=== PATIENT | male | born 1960 | race Caucasian/White ===

== ENCOUNTER 2020-06-18 14:57 | Inpatient (IN) | payer OTHER, SELFPAY ==
[~2020-06-18 14:57] MED LIST: Iopamidol-370 76% 500 ML 1 ML ONE
[2020-06-18 15:54] LABS: #Basophils 0.1 thou/uL (0.0-0.2); #Eosinphils 0.3 thou/uL (0.0-0.7); #Lymphocytes 1.8 thou/uL (1.20-3.40); #Monocytes 1.2 thou/uL (0.11-0.59); %Basophils 0.8 % (0.0-1.0); %Eosinophils 2.8 % (0.0-10.0); %Lymphocytes 15.5 % (21.0-51.0); %Monocytes 10.6 % (0.0-10.0); %Neutrophils 70.3 % (42.0-75.0); Hemoglobin 11.6 g/dL (14.0-18.0); Mean Corpuscular HGB CONC 31.3 g/dL (32.0-36.0); Mean Corpuscular Hemoglobin 29.7 pg (27.0-31.0); Mean Corpuscular Volume 94.7 fL (78.0-98.0); Mean Platelet Volume 8.2 fL (7.4-10.4); Platelet Count 265 thou/uL (130-400); RBC Distribution Width 14.9 % (11.5-14.5); Red Blood Cell (RBC) Count 3.91 mill/uL (4.70-6.10); White Blood Cell (WBC) Count 11.4 thou/uL (4.8-10.8)
[2020-06-18 16:26] LABS: ALT (SGPT) 12 U/L (8-55); AST (SGOT) 14 U/L (5-34); Albumin 4.1 g/dL (3.4-4.8); Alkaline Phosphatase 100 U/L (40-110); Anion Gap 12 mmol/L (10-20); BUN (Urea Nitrogen) 18 mg/dL (8.4-25.7); Bilirubin, Total 0.7 mg/dL (0.2-1.2); Calc. Creatinine Clearance 0 mL/min (70-130); Carbon Dioxide 30 mmol/L (23-31); Chloride 107 mmol/L (98-107); Globulin 2.9 g/dL (2.4-3.5); Glucose 162 mg/dL (80-115); Sodium 145 mmol/L (136-145)
[2020-06-18] MEDS ORDERED: Azithromycin 500 MG VIAL ONE (16:43)
[2020-06-18] MEDS ORDERED: cefTRIAXone\\ROCEPHIN 2 GM VIAL ONE (16:43)
[2020-06-18 17:14] LABS: SARS-CoV-2 NAA Rapid Test Not Detected (NotDetected)
[2020-06-18] MEDS ORDERED: Dextrose 5% in Water 1,000 ML IV PRN (19:57)
[2020-06-18] MEDS ORDERED: Dextrose 50% Abboject 50 ML SYRINGE SLOW IVP PRN (19:57)
[2020-06-18] MEDS ORDERED: HumaLOG 300 UNITS/3 ML VIAL SC PRN ×2 (19:57)
[2020-06-18] MEDS ORDERED: Guaifenesin DM 100-10/5 ML UDCUP PO PRN (19:59)
[2020-06-18] MEDS ORDERED: Acetaminophen 325 MG TAB PO PRN (19:59)
[2020-06-18] MEDS ORDERED: Ondansetron PF 4 MG/2 ML Vial IVP PRN (19:59)
[2020-06-18] MEDS ORDERED: Calcium Carbonate 500 MG ChewTAB PO PRN (19:59)
[2020-06-18] MEDS ORDERED: Ondansetron ODT 4 MG TAB PO PRN (19:59)
[2020-06-18] MEDS ORDERED: Furosemide 40 MG/4 ML VIAL SLOW IVP SCH (20:00)
[2020-06-18] MEDS: Famotidine 20 MG TAB PO SCH (21:25)
[2020-06-18 21:38] LABS: Troponin I Less than 0.010 ng/mL (< 0.028)
[2020-06-18 23:26] LABS: Troponin I 0.012 ng/mL (< 0.028)
[2020-06-18 23:33] VITALS: BMI 42.4
[2020-06-19 05:23] LABS: #Basophils 0.1 thou/uL (0.0-0.2); #Eosinphils 0.3 thou/uL (0.0-0.7); #Monocytes 1.2 thou/uL (0.11-0.59); %Basophils 0.8 % (0.0-1.0); %Eosinophils 3.1 % (0.0-10.0); %Lymphocytes 18.7 % (21.0-51.0); %Monocytes 11.5 % (0.0-10.0); %Neutrophils 65.9 % (42.0-75.0); Hemoglobin 11.5 g/dL (14.0-18.0); Mean Corpuscular HGB CONC 30.7 g/dL (32.0-36.0); Mean Corpuscular Hemoglobin 29.2 pg (27.0-31.0); Mean Corpuscular Volume 95.2 fL (78.0-98.0); Mean Platelet Volume 8.3 fL (7.4-10.4); Platelet Count 259 thou/uL (130-400); Red Blood Cell (RBC) Count 3.94 mill/uL (4.70-6.10); White Blood Cell (WBC) Count 10.6 thou/uL (4.8-10.8)
[2020-06-19 05:57] LABS: Anion Gap 13 mmol/L (10-20); BUN (Urea Nitrogen) 18 mg/dL (8.4-25.7); Calc. Creatinine Clearance 106 mL/min (70-130); Calcium 9.7 mg/dL (7.8-10.44); Carbon Dioxide 31 mmol/L (23-31); Chloride 104 mmol/L (98-107); Glucose 114 mg/dL (80-115); Magnesium 2.1 mg/dL (1.6-2.6); Potassium 4.5 mmol/L (3.5-5.1); Sodium 143 mmol/L (136-145)
[2020-06-19] MEDS: Famotidine 20 MG TAB PO SCH ×2 (08:42→20:12)
[2020-06-19] MEDS: Enoxaparin Sodium 40 MG/0.4 ML SYRINGE SC SCH (08:42)
[2020-06-19] MEDS ORDERED: Non-Formulary Item 1 EACH (Omega-3 Fatty Acids/Fish Oil [Fish Oil 1,000 Mg Capsule] 1 CAP PO SCH (09:00)
[2020-06-19] MEDS ORDERED: Non-Formulary Item 1 EACH (Lisinopril [Lisinopril] 40 MG Tablet) PO SCH (09:00)
[2020-06-19] MEDS ORDERED: Non-Formulary Item 1 EACH (Atorvastatin Calcium [Lipitor] 80 MG Tablet) PO SCH (09:00)
[2020-06-19] MEDS ORDERED: Non-Formulary Item 1 EACH (Nifedipine [Nifedipine Er] 60 MG Tablet.Er) PO SCH (09:00)
[2020-06-19] MEDS ORDERED: Non-Formulary Item 1 EACH (Semaglutide [Rybelsus] 3 MG Tablet) PO SCH (09:00)
[2020-06-19] MEDS: Aspirin 81 mg Enteric Coated Tablet PO SCH (10:20)
[2020-06-19] MEDS: hydrALAZINE 10 MG TAB PO SCH ×3 (10:20→20:12)
[2020-06-19] MEDS: Fish Oil 1,000 MG CAP PO SCH (10:20)
[2020-06-19] MEDS: Carvedilol 25 MG TAB PO SCH ×3 (10:21→20:12)
[2020-06-19] MEDS: Atorvastatin Calcium 40 MG TAB PO SCH (10:21)
[2020-06-19] MEDS ORDERED: Furosemide 40 MG/4 ML VIAL SLOW IVP SCH (14:30)
[2020-06-19] MEDS ORDERED: cefTRIAXone\\ROCEPHIN 1 GM in Sodium Chloride 0.9% 100 ML IVPB SCH (16:00)
[2020-06-19] MEDS ORDERED: Azithromycin 500 MG in Sodium Chloride 0.9% 250 ML 250 ML IVPB SCH (17:00)
[2020-06-20] MEDS ORDERED: Semaglutide [Rybelsus] 3 MG Tablet PO SCH (09:00)
[2020-06-20] MEDS ORDERED: Furosemide 40 MG/4 ML VIAL SLOW IVP SCH (09:00)
[2020-06-20] MEDS: Atorvastatin Calcium 40 MG TAB PO SCH (10:04)
[2020-06-20] MEDS: Fish Oil 1,000 MG CAP PO SCH (10:04)
[2020-06-20] MEDS: Aspirin 81 mg Enteric Coated Tablet PO SCH (10:04)
[2020-06-20] MEDS: Bupropion 150 MG XL TAB PO SCH (10:04)
[2020-06-20] MEDS: Famotidine 20 MG TAB PO SCH ×2 (10:04→22:10)
[2020-06-20] MEDS: NIFEdipine XL 60 MG TAB PO SCH (10:04)
[2020-06-20] MEDS: Carvedilol 25 MG TAB PO SCH ×3 (10:04→22:09)
[2020-06-20] MEDS: hydrALAZINE 10 MG TAB PO SCH ×3 (10:05→22:09)
[2020-06-20] MEDS: Enoxaparin Sodium 40 MG/0.4 ML SYRINGE SC SCH (10:05)
[2020-06-20] MEDS: Lisinopril 20 MG TAB PO SCH (10:05)
[2020-06-21 08:45] LABS: Anion Gap 10 mmol/L (10-20); BUN (Urea Nitrogen) 27 mg/dL (8.4-25.7); Calc. Creatinine Clearance 91 mL/min (70-130); Calcium 9.8 mg/dL (7.8-10.44); Carbon Dioxide 33 mmol/L (23-31); Chloride 102 mmol/L (98-107); Glucose 190 mg/dL (80-115); Potassium 4.2 mmol/L (3.5-5.1); Sodium 141 mmol/L (136-145)
[2020-06-21] MEDS: Bupropion 150 MG XL TAB PO SCH (09:12)
[2020-06-21] MEDS: Aspirin 81 mg Enteric Coated Tablet PO SCH (09:12)
[2020-06-21] MEDS: Atorvastatin Calcium 40 MG TAB PO SCH (09:12)
[2020-06-21] MEDS: Famotidine 20 MG TAB PO SCH ×2 (09:13→20:58)
[2020-06-21] MEDS: Fish Oil 1,000 MG CAP PO SCH (09:13)
[2020-06-21] MEDS: NIFEdipine XL 60 MG TAB PO SCH (09:13)
[2020-06-21] MEDS: hydrALAZINE 10 MG TAB PO SCH ×3 (09:13→20:58)
[2020-06-21] MEDS: Carvedilol 25 MG TAB PO SCH ×3 (09:13→20:58)
[2020-06-21] MEDS: Lisinopril 20 MG TAB PO SCH (09:13)
[2020-06-21] MEDS: Enoxaparin Sodium 40 MG/0.4 ML SYRINGE SC SCH (09:14)
[2020-06-21] MEDS: Azithromycin 250 MG TAB PO SCH (09:14)
[2020-06-22 05:00] LABS: Anion Gap 9 mmol/L (10-20); BUN (Urea Nitrogen) 29 mg/dL (8.4-25.7); Calc. Creatinine Clearance 91 mL/min (70-130); Calcium 9.8 mg/dL (7.8-10.44); Carbon Dioxide 33 mmol/L (23-31); Chloride 102 mmol/L (98-107); Glucose 112 mg/dL (80-115); Potassium 4.3 mmol/L (3.5-5.1); Sodium 140 mmol/L (136-145)
[2020-06-22] MEDS: Bupropion 150 MG XL TAB PO SCH (09:06)
[2020-06-22] MEDS: Atorvastatin Calcium 40 MG TAB PO SCH (09:06)
[2020-06-22] MEDS: Azithromycin 250 MG TAB PO SCH (09:06)
[2020-06-22] MEDS: Aspirin 81 mg Enteric Coated Tablet PO SCH (09:06)
[2020-06-22] MEDS: Carvedilol 25 MG TAB PO SCH ×2 (09:06→15:48)
[2020-06-22] MEDS: Fish Oil 1,000 MG CAP PO SCH (09:06)
[2020-06-22] MEDS: Enoxaparin Sodium 40 MG/0.4 ML SYRINGE SC SCH (09:06)
[2020-06-22] MEDS: Famotidine 20 MG TAB PO SCH (09:06)
[2020-06-22] MEDS: hydrALAZINE 10 MG TAB PO SCH ×2 (09:07→15:56)
[2020-06-22] MEDS: Lisinopril 20 MG TAB PO SCH (09:07)
[2020-06-22] MEDS: NIFEdipine XL 60 MG TAB PO SCH (09:07)
[2020-06-22 15:44] VITALS: BP 109/53; TEMP 97.8
== END 2020-06-22 18:55 | disposition home or self-care (01) | DRG 291 ==
LOC: ERS 14:57 → 2NO 18:04
PROVIDERS: ADMIT Internal Medicine; ATTEND Internal Medicine
DX: I13.0 Hypertensive heart and chronic kidney disease with heart failure and stage 1 through stage 4 chronic kidney disease, or unspecified chronic kidney disease (principal); I50.31 Acute diastolic (congestive) heart failure; J96.01 Acute respiratory failure with hypoxia; J18.9 Pneumonia, unspecified organism; J44.0 Chronic obstructive pulmonary disease with (acute) lower respiratory infection; Z20.822 Contact with and (suspected) exposure to COVID-19; N18.30 Chronic kidney disease, stage 3 unspecified; E11.22 Type 2 diabetes mellitus with diabetic chronic kidney disease; E78.5 Hyperlipidemia, unspecified; E78.00 Pure hypercholesterolemia, unspecified; I25.2 Old myocardial infarction; Z95.1 Presence of aortocoronary bypass graft; Z79.82 Long term (current) use of aspirin; Z79.899 Other long term (current) drug therapy; Z87.891 Personal history of nicotine dependence
CPT/HCPCS: 0240U; 36415; 36416; 71045; 71275; 80048; 80053; 83735; 83880; 84484; 85025; 85379; 93005; 93306; 93798; 96365; 96367; 97139; J0456; J0696; J1650; J1940; J3490; J7050; Q9967

== ENCOUNTER 2020-07-31 13:21 | Inpatient (IN) | payer SELFPAY ==
[2020-07-31 14:12] LABS: #Basophils 0.1 thou/uL (0.0-0.2); #Eosinphils 0.4 thou/uL (0.0-0.7); #Lymphocytes 1.9 thou/uL (1.20-3.40); #Monocytes 1.2 thou/uL (0.11-0.59); #Neutrophils 5.9 thou/uL (1.40-6.50); %Eosinophils 3.9 % (0.0-10.0); %Lymphocytes 19.8 % (21.0-51.0); %Monocytes 12.4 % (0.0-10.0); %Neutrophils 62.9 % (42.0-75.0); Hemoglobin 11.2 g/dL (14.0-18.0); Mean Corpuscular HGB CONC 31.6 g/dL (32.0-36.0); Mean Corpuscular Hemoglobin 30.6 pg (27.0-31.0); Mean Corpuscular Volume 96.6 fL (78.0-98.0); Platelet Count 248 thou/uL (130-400); RBC Distribution Width 15.1 % (11.5-14.5); Red Blood Cell (RBC) Count 3.67 mill/uL (4.70-6.10); White Blood Cell (WBC) Count 9.3 thou/uL (4.8-10.8)
[2020-07-31 14:24] LABS: INR-International Normal Ratio 1.1; PTT 28.1 sec (22.9-36.1); Prothrombin Time 14.5 sec (12.0-14.7)
[2020-07-31 14:33] LABS: ALT (SGPT) 10 U/L (8-55); AST (SGOT) 15 U/L (5-34); Alkaline Phosphatase 90 U/L (40-110); Anion Gap 6 mmol/L (10-20); BUN (Urea Nitrogen) 28 mg/dL (8.4-25.7); Bilirubin, Total 0.7 mg/dL (0.2-1.2); Calc. Creatinine Clearance 0 mL/min (70-130); Calcium 9.5 mg/dL (7.8-10.44); Carbon Dioxide 31 mmol/L (23-31); Chloride 107 mmol/L (98-107); Globulin 2.8 g/dL (2.4-3.5); Glucose 110 mg/dL (80-115); Potassium 5.1 mmol/L (3.5-5.1); Protein, Total 6.8 g/dL (5.8-8.1); Sodium 139 mmol/L (136-145)
[2020-07-31 14:38] LABS: Bilirubin Negative (Negative); Blood, Urine 3+ (Negative); Clarity Turbid (Clear); Glucose, Urine (Dipstick) Normal (Negative); Ketone, Urine Negative (Negative); Leukocyte 75 Leu/uL (Negative); Nitrite Negative (Negative); Protein, Urine (Dipstick) 100 mg/dL (Neg-Trace); RBC/HPF Greater than 50 HPF (0-3); Squamous Epithelial None Seen HPF (0-3); Urobilinogen Normal mg/dL (Less than 2); WBC/HPF 0-3 HPF (0-3); pH, Urine 5.5 (5.0-9.0)
[2020-07-31 14:39] LABS: Bacteria/HPF 1+ HPF (None Seen)
[2020-07-31] MEDS ORDERED: Furosemide 40 MG/4 ML VIAL ONE (15:42)
[2020-07-31] MEDS ORDERED: Dextrose 50% Abboject 50 ML SYRINGE SLOW IVP PRN (17:17)
[2020-07-31] MEDS ORDERED: HumaLOG 300 UNITS/3 ML VIAL SC PRN (17:17)
[2020-07-31] MEDS ORDERED: Dextrose 5% in Water 1,000 ML IV PRN (17:17)
[2020-07-31 17:26] VITALS: BMI 42.6
[2020-07-31 17:27] LABS: Troponin I Less than 0.010 ng/mL (< 0.028)
[2020-07-31 20:24] LABS: Hemoglobin 11.4 g/dL (14.0-18.0)
[2020-07-31 20:51] LABS: Troponin I Less than 0.010 ng/mL (< 0.028)
[2020-08-01] MEDS: Carvedilol 25 MG TAB PO SCH ×3 (08:20→21:05)
[2020-08-01] MEDS: Fish Oil 1,000 MG CAP PO SCH (08:20)
[2020-08-01] MEDS ORDERED: Furosemide 40 MG TAB PO SCH (09:00)
[2020-08-01] MEDS ORDERED: Lisinopril 20 MG TAB PO SCH (09:00)
[2020-08-01] MEDS ORDERED: Non-Formulary Item 1 EACH (Lisinopril [Lisinopril] 40 MG Tablet) PO SCH (09:00)
[2020-08-01] MEDS ORDERED: hydrALAZINE 10 MG TAB PO SCH ×2 (09:00)
[2020-08-01] MEDS ORDERED: NIFEdipine XL 60 MG TAB PO SCH (09:00)
[2020-08-01] MEDS ORDERED: Iopamidol-370 76% 500 ML 1 ML ONE (11:08)
[2020-08-01 12:41] LABS: SARS-CoV-2 PCR by NAA Not Detected (NotDetected)
[2020-08-01] MEDS: Furosemide 40 MG/4 ML VIAL SLOW IVP SCH (14:34)
[2020-08-01] MEDS: hydrALAZINE 10 MG TAB PO SCH ×2 (14:34→21:06)
[2020-08-01 17:09] LABS: Hemoglobin 10.6 g/dL (14.0-18.0)
[2020-08-01] MEDS: Atorvastatin Calcium 40 MG TAB PO SCH (21:05)
[2020-08-02] MEDS: Furosemide 40 MG/4 ML VIAL SLOW IVP SCH (05:21)
[2020-08-02 05:28] LABS: #Eosinphils 0.1 thou/uL (0.0-0.7); #Lymphocytes 0.9 thou/uL (1.20-3.40); #Monocytes 1.5 thou/uL (0.11-0.59); #Neutrophils 10.8 thou/uL (1.40-6.50); %Basophils 0.3 % (0.0-1.0); %Eosinophils 0.7 % (0.0-10.0); %Lymphocytes 7.1 % (21.0-51.0); %Monocytes 11.4 % (0.0-10.0); %Neutrophils 80.6 % (42.0-75.0); Hemoglobin 10.7 g/dL (14.0-18.0); Mean Corpuscular HGB CONC 32.4 g/dL (32.0-36.0); Mean Corpuscular Hemoglobin 30.9 pg (27.0-31.0); Mean Corpuscular Volume 95.5 fL (78.0-98.0); Mean Platelet Volume 8.4 fL (7.4-10.4); Platelet Count 231 thou/uL (130-400); Red Blood Cell (RBC) Count 3.46 mill/uL (4.70-6.10); White Blood Cell (WBC) Count 13.4 thou/uL (4.8-10.8)
[2020-08-02 05:51] LABS: Anion Gap 11 mmol/L (10-20); BUN (Urea Nitrogen) 29 mg/dL (8.4-25.7); Calc. Creatinine Clearance 66 mL/min (70-130); Calcium 9.6 mg/dL (7.8-10.44); Carbon Dioxide 29 mmol/L (23-31); Chloride 103 mmol/L (98-107); Glucose 132 mg/dL (80-115); Potassium 4.4 mmol/L (3.5-5.1); Sodium 139 mmol/L (136-145)
[2020-08-02] MEDS: hydrALAZINE 10 MG TAB PO SCH ×2 (08:59→14:45)
[2020-08-02] MEDS: Bupropion 150 MG XL TAB PO SCH (09:00)
[2020-08-02] MEDS: Carvedilol 25 MG TAB PO SCH ×2 (09:00→14:45)
[2020-08-02] MEDS: Fish Oil 1,000 MG CAP PO SCH (09:00)
[2020-08-02] MEDS ORDERED: NIFEdipine XL 30 MG TAB PO SCH (09:00)
[2020-08-02] MEDS: Carvedilol 6.25 MG TAB PO SCH ×2 (15:20→20:19)
[2020-08-02 16:21] LABS: Hemoglobin 10.6 g/dL (14.0-18.0)
[2020-08-02] MEDS: Atorvastatin Calcium 40 MG TAB PO SCH (20:20)
[2020-08-03 05:00] LABS: Hemoglobin 10.5 g/dL (14.0-18.0); Mean Corpuscular HGB CONC 31.2 g/dL (32.0-36.0); Mean Corpuscular Hemoglobin 30.3 pg (27.0-31.0); Mean Corpuscular Volume 97.3 fL (78.0-98.0); Mean Platelet Volume 8.2 fL (7.4-10.4); Platelet Count 233 thou/uL (130-400); RBC Distribution Width 14.8 % (11.5-14.5); Red Blood Cell (RBC) Count 3.47 mill/uL (4.70-6.10); White Blood Cell (WBC) Count 8.1 thou/uL (4.8-10.8)
[2020-08-03 05:32] LABS: MDiff Complete? YES
[2020-08-03 05:33] LABS: Anion Gap 12 mmol/L (10-20); BUN (Urea Nitrogen) 36 mg/dL (8.4-25.7); Band 6 % (5-11); Calc. Creatinine Clearance 68 mL/min (70-130); Calcium 9.5 mg/dL (7.8-10.44); Carbon Dioxide 32 mmol/L (23-31); Chloride 102 mmol/L (98-107); Eosinophils 4 % (0-10); Glucose 103 mg/dL (80-115); Lymphocytes 17 % (21-51); Monocytes 20 % (0-10); Neutrophil 53 % (42-75); Potassium 4.5 mmol/L (3.5-5.1); Sodium 141 mmol/L (136-145)
[2020-08-03] MEDS: Bupropion 150 MG XL TAB PO SCH (08:27)
[2020-08-03] MEDS: Carvedilol 6.25 MG TAB PO SCH ×3 (08:27→20:30)
[2020-08-03] MEDS ORDERED: Sodium Chloride 0.9% 1,000 ML IV SCH (11:30)
[2020-08-03] MEDS: Tamsulosin HCl 0.4 MG CAP PO SCH (20:30)
[2020-08-03] MEDS: Atorvastatin Calcium 40 MG TAB PO SCH (20:30)
[2020-08-04 05:11] LABS: #Basophils 0.1 thou/uL (0.0-0.2); #Eosinphils 0.3 thou/uL (0.0-0.7); #Lymphocytes 1.1 thou/uL (1.20-3.40); #Neutrophils 5.6 thou/uL (1.40-6.50); %Eosinophils 3.9 % (0.0-10.0); %Lymphocytes 14.1 % (21.0-51.0); %Monocytes 11.8 % (0.0-10.0); %Neutrophils 69.2 % (42.0-75.0); Hemoglobin 11.2 g/dL (14.0-18.0); Mean Corpuscular Hemoglobin 30.2 pg (27.0-31.0); Mean Corpuscular Volume 97.5 fL (78.0-98.0); Mean Platelet Volume 8.4 fL (7.4-10.4); Platelet Count 229 thou/uL (130-400); RBC Distribution Width 14.6 % (11.5-14.5); White Blood Cell (WBC) Count 8.1 thou/uL (4.8-10.8)
[2020-08-04] MEDS: Carvedilol 6.25 MG TAB PO SCH ×3 (05:11→22:00)
[2020-08-04 05:30] LABS: Albumin 4.1 g/dL (3.4-4.8); Anion Gap 11 mmol/L (10-20); BUN (Urea Nitrogen) 31 mg/dL (8.4-25.7); Calc. Creatinine Clearance 94 mL/min (70-130); Calcium 9.8 mg/dL (7.8-10.44); Carbon Dioxide 33 mmol/L (23-31); Chloride 103 mmol/L (98-107); Glucose 106 mg/dL (80-115); Phosphorus 3.3 mg/dL (2.3-4.7); Potassium 4.7 mmol/L (3.5-5.1); Sodium 142 mmol/L (136-145)
[2020-08-04] MEDS ORDERED: CEFAZOLIN 2 GM in Premix Bag 1 BAG IVPB SCH (07:45)
[2020-08-04] MEDS ORDERED: Midazolam HCl 2 mg/2 ml Vial ONE (09:01)
[2020-08-04] MEDS ORDERED: Fentanyl 100 MCG/2 ML VIAL ONE ×3 (09:01→14:05)
[2020-08-04] MEDS: Bupropion 150 MG XL TAB PO SCH (09:27)
[2020-08-04] MEDS ORDERED: Promethazine HCl 25 MG SUPP PR PRN (11:00)
[2020-08-04] MEDS ORDERED: Hydrocerin (Eucerin) Cream 120 gm Jar TOP PRN (11:00)
[2020-08-04] MEDS ORDERED: Fentanyl 5 mcg/Bup 0.075% Cadd 100 ML EPIDURAL SCH (11:00)
[2020-08-04] MEDS ORDERED: Promethazine HCl 25 MG/ML VIAL IM PRN (11:00)
[2020-08-04] MEDS ORDERED: Zolpidem Tartrate 5 MG TAB PO PRN (11:00)
[2020-08-04] MEDS ORDERED: diphenhydrAMINE 50 MG/ML VIAL IM PRN (11:00)
[2020-08-04] MEDS ORDERED: diphenhydrAMINE 50 MG/ML VIAL IVP PRN (11:00)
[2020-08-04] MEDS ORDERED: traMADol HCl 50 MG TAB PO PRN ×2 (11:00)
[2020-08-04] MEDS ORDERED: Naloxone HCl 0.4 mg/ml Vial IVP PRN (11:00)
[2020-08-04] MEDS ORDERED: Naloxone HCl 0.4 mg/ml Vial IV PRN (11:00)
[2020-08-04] MEDS ORDERED: HYDROcodone/Acetaminophen 5/325 mg Tablet PO PRN ×2 (11:00)
[2020-08-04] MEDS ORDERED: diphenhydrAMINE 25 MG CAP PO PRN (11:00)
[2020-08-04] MEDS ORDERED: Bupivacaine 0.25% 10 ML VIAL EPIDURAL PRN (11:00)
[2020-08-04] MEDS ORDERED: Acetaminophen 500 MG TAB PO PRN (11:04)
[2020-08-04] MEDS ORDERED: Rocuronium Bromide 10 MG/ML (10ML VIAL) ONE (11:24)
[2020-08-04] MEDS ORDERED: Glycopyrrolate 0.2 MG/ML 5 ML SYRINGE ONE (11:24)
[2020-08-04] MEDS ORDERED: Lidocaine 1.5% w/Epi 1:200K 30 ML VIAL (Epid Use) ONE (11:24)
[2020-08-04] MEDS ORDERED: Lidocaine 1% PF 5 ML VIAL ONE (11:24)
[2020-08-04] MEDS ORDERED: PROPOFOL 200 MG/20 ML VIAL ONE (11:24)
[2020-08-04] MEDS ORDERED: SUGAMMADEX SODIUM 200 MG/2 ML VIAL ONE (13:35)
[2020-08-04] MEDS: Tamsulosin HCl 0.4 MG CAP PO SCH (22:00)
[2020-08-04] MEDS: Atorvastatin Calcium 40 MG TAB PO SCH (22:00)
[2020-08-05 06:23] LABS: Hemoglobin 7.9 g/dL (14.0-18.0); Mean Corpuscular HGB CONC 31.7 g/dL (32.0-36.0); Mean Corpuscular Hemoglobin 30.3 pg (27.0-31.0); Mean Corpuscular Volume 95.4 fL (78.0-98.0); Platelet Count 218 thou/uL (130-400); Red Blood Cell (RBC) Count 2.61 mill/uL (4.70-6.10); White Blood Cell (WBC) Count 12.1 thou/uL (4.8-10.8)
[2020-08-05 06:25] LABS: Albumin 3.3 g/dL (3.4-4.8); Anion Gap 13 mmol/L (10-20); BUN (Urea Nitrogen) 39 mg/dL (8.4-25.7); Calc. Creatinine Clearance 61 mL/min (70-130); Carbon Dioxide 27 mmol/L (23-31); Chloride 103 mmol/L (98-107); Glucose 138 mg/dL (80-115); Phosphorus 3.8 mg/dL (2.3-4.7); Potassium 5.4 mmol/L (3.5-5.1); Sodium 138 mmol/L (136-145)
[2020-08-05] MEDS: Bupropion 150 MG XL TAB PO SCH (08:10)
[2020-08-05] MEDS: Carvedilol 3.125 MG TAB PO SCH ×3 (08:57→22:26)
[2020-08-05] MEDS ORDERED: Fentanyl 5 mcg/Bup 0.075% Cadd 100 ML EPIDURAL SCH (09:00)
[2020-08-05] MEDS: Sodium Chloride 0.45% 1,000 ML IV SCH (10:08)
[2020-08-05] MEDS ORDERED: Sodium Chloride 0.9% 1,000 ML IV SCH (12:00)
[2020-08-05] MEDS: Ondansetron PF 4 MG/2 ML Vial IVP PRN (21:07)
[2020-08-05] MEDS: Atorvastatin Calcium 40 MG TAB PO SCH (22:26)
[2020-08-05] MEDS: Tamsulosin HCl 0.4 MG CAP PO SCH (22:26)
[2020-08-06] MEDS: Sodium Chloride 0.45% 1,000 ML IV SCH ×3 (05:34→23:47)
[2020-08-06 06:24] LABS: Mean Corpuscular HGB CONC 32.4 g/dL (32.0-36.0); Mean Corpuscular Hemoglobin 30.7 pg (27.0-31.0); Mean Corpuscular Volume 94.8 fL (78.0-98.0); Mean Platelet Volume 7.8 fL (7.4-10.4); Platelet Count 240 thou/uL (130-400); White Blood Cell (WBC) Count 13.4 thou/uL (4.8-10.8)
[2020-08-06 06:45] LABS: Albumin 3.5 g/dL (3.4-4.8); Anion Gap 13 mmol/L (10-20); BUN (Urea Nitrogen) 43 mg/dL (8.4-25.7); BUN/Creatinine Ratio 19.37; Calc. Creatinine Clearance 58 mL/min (70-130); Calcium 9.3 mg/dL (7.8-10.44); Carbon Dioxide 29 mmol/L (23-31); Chloride 99 mmol/L (98-107); Glucose 121 mg/dL (80-115); Phosphorus 4.5 mg/dL (2.3-4.7); Potassium 5.4 mmol/L (3.5-5.1); Sodium 136 mmol/L (136-145)
[2020-08-06] MEDS: Ondansetron PF 4 MG/2 ML Vial IVP PRN (06:46)
[2020-08-06] MEDS: Bupropion 150 MG XL TAB PO SCH (07:12)
[2020-08-06] MEDS: Atorvastatin Calcium 40 MG TAB PO SCH ×2 (08:34→20:06)
[2020-08-06] MEDS: Carvedilol 3.125 MG TAB PO SCH ×3 (08:34→20:07)
[2020-08-06 13:40] LABS: Base Excess (BEa) 3.8 mEq/L (-2.0 to +3.0); Calcium, Ionized (arterial) 1.24 mmol/L (1.12-1.30); Carboxyhemoglobin (COHb) 0.8 gm% (0.0-3.0); Hemoglobin (Hb) 9.9 g/dL (14.0-18.0); Potassium - ABG Lab 5.32 mmol/L (3.70-5.30)
[2020-08-06 13:43] LABS: CO2 Tension 80.5 mmHg (35.0-45.0); O2 Tension (PaO2), arterial 48.4 mmHg (> 80.0); pH, Arterial 7.23 (7.35-7.45)
[2020-08-06 13:44] LABS: ALV-art Gradient 107.655 mmHg (0-20); Puncture Site RRA
[2020-08-06] MEDS ORDERED: Naloxone HCl 0.4 mg/ml Vial IV SCH (14:15)
[2020-08-06] MEDS: methylPREDNISolone Sod Succ 40 MG VIAL IVP SCH ×2 (18:06→23:48)
[2020-08-06] MEDS: Heparin 5,000 UNITS/ML VIAL SC SCH (20:06)
[2020-08-06] MEDS: Tamsulosin HCl 0.4 MG CAP PO SCH (20:07)
[2020-08-07 03:35] LABS: #Basophils 0.1 thou/uL (0.0-0.2); #Lymphocytes 0.6 thou/uL (1.20-3.40); #Monocytes 0.3 thou/uL (0.11-0.59); #Neutrophils 11.1 thou/uL (1.40-6.50); %Basophils 0.5 % (0.0-1.0); %Eosinophils 0.1 % (0.0-10.0); %Lymphocytes 5.1 % (21.0-51.0); %Monocytes 2.6 % (0.0-10.0); %Neutrophils 91.7 % (42.0-75.0); Hemoglobin 6.7 g/dL (14.0-18.0); Mean Corpuscular Hemoglobin 31.5 pg (27.0-31.0); Mean Corpuscular Volume 95.3 fL (78.0-98.0); Platelet Count 217 thou/uL (130-400); RBC Distribution Width 13.9 % (11.5-14.5); Red Blood Cell (RBC) Count 2.13 mill/uL (4.70-6.10); White Blood Cell (WBC) Count 12.1 thou/uL (4.8-10.8)
[2020-08-07 03:57] LABS: Albumin 3.1 g/dL (3.4-4.8); Anion Gap 14 mmol/L (10-20); BUN (Urea Nitrogen) 45 mg/dL (8.4-25.7); BUN/Creatinine Ratio 23.81; Calc. Creatinine Clearance 68 mL/min (70-130); Calcium 8.7 mg/dL (7.8-10.44); Carbon Dioxide 25 mmol/L (23-31); Chloride 101 mmol/L (98-107); Glucose 176 mg/dL (80-115); Phosphorus 3.2 mg/dL (2.3-4.7); Potassium 5.7 mmol/L (3.5-5.1); Sodium 134 mmol/L (136-145)
[2020-08-07] MEDS: methylPREDNISolone Sod Succ 40 MG VIAL IVP SCH ×2 (05:34→17:52)
[2020-08-07] MEDS: Heparin 5,000 UNITS/ML VIAL SC SCH ×2 (08:07→22:50)
[2020-08-07] MEDS: Carvedilol 3.125 MG TAB PO SCH ×3 (08:08→21:03)
[2020-08-07] MEDS ORDERED: Furosemide 20 MG/2 ML VIAL IVP SCH (14:30)
[2020-08-07] MEDS: Atorvastatin Calcium 40 MG TAB PO SCH (21:02)
[2020-08-07] MEDS: Tamsulosin HCl 0.4 MG CAP PO SCH (21:03)
[2020-08-07 21:37] LABS: Hemoglobin 7.6 g/dL (14.0-18.0)
[2020-08-08] MEDS: HumaLOG 300 UNITS/3 ML VIAL SC PRN ×3 (05:23→16:46)
[2020-08-08] MEDS: methylPREDNISolone Sod Succ 40 MG VIAL IVP SCH ×2 (05:23→16:56)
[2020-08-08 05:26] LABS: #Lymphocytes 0.8 thou/uL (1.20-3.40); #Monocytes 1.3 thou/uL (0.11-0.59); #Neutrophils 11.5 thou/uL (1.40-6.50); %Basophils 0.2 % (0.0-1.0); %Eosinophils 0.2 % (0.0-10.0); %Lymphocytes 6.1 % (21.0-51.0); %Monocytes 9.2 % (0.0-10.0); %Neutrophils 84.3 % (42.0-75.0); Hemoglobin 7.4 g/dL (14.0-18.0); Mean Corpuscular HGB CONC 33.2 g/dL (32.0-36.0); Mean Corpuscular Hemoglobin 31.1 pg (27.0-31.0); Mean Corpuscular Volume 93.6 fL (78.0-98.0); Mean Platelet Volume 8.1 fL (7.4-10.4); Platelet Count 282 thou/uL (130-400); RBC Distribution Width 14.2 % (11.5-14.5); Red Blood Cell (RBC) Count 2.39 mill/uL (4.70-6.10); White Blood Cell (WBC) Count 13.6 thou/uL (4.8-10.8)
[2020-08-08 05:58] LABS: Albumin 3.2 g/dL (3.4-4.8); Anion Gap 13 mmol/L (10-20); BUN (Urea Nitrogen) 49 mg/dL (8.4-25.7); BUN/Creatinine Ratio 29.34; Calc. Creatinine Clearance 79 mL/min (70-130); Calcium 9.4 mg/dL (7.8-10.44); Carbon Dioxide 27 mmol/L (23-31); Chloride 103 mmol/L (98-107); Glucose 178 mg/dL (80-115); Phosphorus 2.2 mg/dL (2.3-4.7); Potassium 5.2 mmol/L (3.5-5.1); Sodium 138 mmol/L (136-145)
[2020-08-08] MEDS: Sodium Chloride 0.45% 1,000 ML IV SCH ×2 (06:07→16:45)
[2020-08-08] MEDS: Carvedilol 3.125 MG TAB PO SCH (08:38)
[2020-08-08] MEDS: Heparin 5,000 UNITS/ML VIAL SC SCH ×2 (08:51→21:45)
[2020-08-08] MEDS: chlorproMAZINE HCl 25 MG TAB PO PRN (16:44)
[2020-08-08] MEDS: Carvedilol 6.25 MG TAB PO SCH (16:45)
[2020-08-08] MEDS: Atorvastatin Calcium 40 MG TAB PO SCH (21:43)
[2020-08-08] MEDS: Tamsulosin HCl 0.4 MG CAP PO SCH (21:43)
[2020-08-09] MEDS: HumaLOG 300 UNITS/3 ML VIAL SC PRN ×3 (05:25→17:55)
[2020-08-09] MEDS: methylPREDNISolone Sod Succ 40 MG VIAL IVP SCH (05:26)
[2020-08-09 05:57] LABS: #Lymphocytes 1.1 thou/uL (1.20-3.40); #Monocytes 1.8 thou/uL (0.11-0.59); #Neutrophils 10.4 thou/uL (1.40-6.50); %Basophils 0.2 % (0.0-1.0); %Eosinophils 0.3 % (0.0-10.0); %Lymphocytes 8.4 % (21.0-51.0); %Monocytes 13.5 % (0.0-10.0); %Neutrophils 77.6 % (42.0-75.0); Hemoglobin 7.6 g/dL (14.0-18.0); Mean Corpuscular HGB CONC 32.8 g/dL (32.0-36.0); Mean Corpuscular Hemoglobin 30.7 pg (27.0-31.0); Mean Corpuscular Volume 93.5 fL (78.0-98.0); Mean Platelet Volume 7.8 fL (7.4-10.4); Platelet Count 359 thou/uL (130-400); RBC Distribution Width 14.5 % (11.5-14.5); Red Blood Cell (RBC) Count 2.47 mill/uL (4.70-6.10); White Blood Cell (WBC) Count 13.4 thou/uL (4.8-10.8)
[2020-08-09 06:15] LABS: Anion Gap 10 mmol/L (10-20); BUN (Urea Nitrogen) 53 mg/dL (8.4-25.7); Calc. Creatinine Clearance 79 mL/min (70-130); Calcium 9.5 mg/dL (7.8-10.44); Carbon Dioxide 29 mmol/L (23-31); Chloride 103 mmol/L (98-107); Glucose 205 mg/dL (80-115); Sodium 137 mmol/L (136-145)
[2020-08-09] MEDS: predniSONE 20 MG TAB PO SCH (08:45)
[2020-08-09] MEDS: Carvedilol 6.25 MG TAB PO SCH (08:45)
[2020-08-09] MEDS: Lantus 1000 UNITS/10 ML VIAL SC SCH ×2 (08:45→20:47)
[2020-08-09] MEDS: Heparin 5,000 UNITS/ML VIAL SC SCH ×2 (08:46→20:47)
[2020-08-09] MEDS: chlorproMAZINE HCl 25 MG TAB PO PRN (12:29)
[2020-08-09] MEDS: Sodium Chloride 0.45% 1,000 ML IV SCH (12:33)
[2020-08-09] MEDS: Carvedilol 25 MG TAB PO SCH (17:54)
[2020-08-09] MEDS: Ferrous Sulfate 325 MG TAB PO SCH (17:54)
[2020-08-09] MEDS: Tamsulosin HCl 0.4 MG CAP PO SCH (20:47)
[2020-08-09] MEDS: Atorvastatin Calcium 40 MG TAB PO SCH (20:47)
[2020-08-10 06:05] LABS: Band 1 % (5-11); Hemoglobin 7.7 g/dL (14.0-18.0); Hypochromia SLIGHT = 6-15 cells (100X) (0-5/hpf); Lymphocytes 13 % (21-51); MDiff Complete? YES; Mean Corpuscular HGB CONC 32.2 g/dL (32.0-36.0); Mean Corpuscular Hemoglobin 30.3 pg (27.0-31.0); Mean Platelet Volume 7.7 fL (7.4-10.4); Monocytes 11 % (0-10); Neutrophil 75 % (42-75); Nucleated RBC 1 % (0); Platelet Count 400 thou/uL (130-400); Platelet Morphology Comment Appears Adequate; RBC Distribution Width 14.3 % (11.5-14.5); Red Blood Cell (RBC) Count 2.52 mill/uL (4.70-6.10); White Blood Cell (WBC) Count 16.4 thou/uL (4.8-10.8)
[2020-08-10 06:08] LABS: Anion Gap 11 mmol/L (10-20); BUN (Urea Nitrogen) 41 mg/dL (8.4-25.7); Calc. Creatinine Clearance 80 mL/min (70-130); Calcium 9.4 mg/dL (7.8-10.44); Carbon Dioxide 30 mmol/L (23-31); Chloride 104 mmol/L (98-107); Glucose 143 mg/dL (80-115); Potassium 4.5 mmol/L (3.5-5.1); Sodium 140 mmol/L (136-145)
[2020-08-10] MEDS: Carvedilol 25 MG TAB PO SCH ×2 (08:41→16:44)
[2020-08-10] MEDS: Ferrous Sulfate 325 MG TAB PO SCH ×2 (08:42→16:44)
[2020-08-10] MEDS: predniSONE 20 MG TAB PO SCH (08:42)
[2020-08-10] MEDS: Heparin 5,000 UNITS/ML VIAL SC SCH (08:42)
[2020-08-10] MEDS: Lantus 1000 UNITS/10 ML VIAL SC SCH (08:42)
[2020-08-10 11:40] VITALS: TEMP 98.5
[2020-08-10 15:21] VITALS: BP 163/81
== END 2020-08-10 17:45 | disposition home or self-care (01) | DRG 656 ==
LOC: ERS 13:21 → 2NO 15:34 → SURG A 08-04 16:04 → CCU 08-06 15:07 → SURG A 08-07 18:07
PROVIDERS: ADMIT Internal Medicine; ATTEND Internal Medicine
PROC: 0TT00ZZ Resection of Right Kidney, Open Approach (ICD-10-PCS; principal; 2020-08-04)
PROC: 0TJB8ZZ Inspection of Bladder, Via Natural or Artificial Opening Endoscopic (ICD-10-PCS; 2020-08-04)
PROC: 5A09357 Assistance with Respiratory Ventilation, Less than 24 Consecutive Hours, Continuous Positive Airway Pressure (ICD-10-PCS; 2020-08-06)
PROC: 30233N1 Transfusion of Nonautologous Red Blood Cells into Peripheral Vein, Percutaneous Approach (ICD-10-PCS; 2020-08-07)
DX: C64.1 Malignant neoplasm of right kidney, except renal pelvis (principal); I50.33 Acute on chronic diastolic (congestive) heart failure; Z20.822 Contact with and (suspected) exposure to COVID-19; J96.21 Acute and chronic respiratory failure with hypoxia; J96.22 Acute and chronic respiratory failure with hypercapnia; D62 Acute posthemorrhagic anemia; N17.9 Acute kidney failure, unspecified; I13.0 Hypertensive heart and chronic kidney disease with heart failure and stage 1 through stage 4 chronic kidney disease, or unspecified chronic kidney disease; E66.2 Morbid (severe) obesity with alveolar hypoventilation; J98.11 Atelectasis; Z68.41 Body mass index [BMI] 40.0-44.9, adult; N28.1 Cyst of kidney, acquired; I25.10 Atherosclerotic heart disease of native coronary artery without angina pectoris; F41.9 Anxiety disorder, unspecified; R31.0 Gross hematuria; E78.00 Pure hypercholesterolemia, unspecified; N18.30 Chronic kidney disease, stage 3 unspecified; E11.22 Type 2 diabetes mellitus with diabetic chronic kidney disease; F32.9 Major depressive disorder, single episode, unspecified; J44.9 Chronic obstructive pulmonary disease, unspecified; E78.2 Mixed hyperlipidemia; D72.829 Elevated white blood cell count, unspecified; I95.9 Hypotension, unspecified; I25.2 Old myocardial infarction; Z87.891 Personal history of nicotine dependence; Z95.1 Presence of aortocoronary bypass graft; Z79.899 Other long term (current) drug therapy; Z79.82 Long term (current) use of aspirin; Z82.49 Family history of ischemic heart disease and other diseases of the circulatory system; Z80.1 Family history of malignant neoplasm of trachea, bronchus and lung; Z91.19 Patient's noncompliance with other medical treatment and regimen
CPT/HCPCS: 36415; 36416; 36430; 36600; 71045; 74022; 74177; 76770; 80048; 80053; 80069; 81003; 81015; 82805; 83735; 83880; 84153; 84443; 84484; 85014; 85018; 85025; 85027; 85610; 85730; 86850; 86900; 86901; 87086; 88307; 93005; 93798; 94640; 94660; 96374; J0690; J1644; J1815; J1940; J2001; J2250; J2310; J2405; J2550; J2704; J2920; J3010; J7512; J7620; P9016; Q0161; Q9967; U0003; U0005

== ENCOUNTER 2021-07-14 08:21 | Outpatient (CLI) | payer BC | END 2021-07-14 08:22 | disposition home or self-care (01) | LOC: BICCT 08:21 | PROVIDERS: ATTEND Urology | DX: C64.1 Malignant neoplasm of right kidney, except renal pelvis (principal); J18.1 Lobar pneumonia, unspecified organism; N28.9 Disorder of kidney and ureter, unspecified; Z90.5 Acquired absence of kidney | CPT/HCPCS: 74160; 82565 ==

== ENCOUNTER 2022-07-27 08:45 | Outpatient (CLI) | payer BC ==
[2022-07-27] MEDS ORDERED: Iopamidol 370 76% 100 ML VIAL ONE (09:00)
== END 2022-07-27 08:46 | disposition home or self-care (01) ==
LOC: BICCT 08:45
PROVIDERS: ATTEND Urology
DX: C64.1 Malignant neoplasm of right kidney, except renal pelvis (principal); N28.89 Other specified disorders of kidney and ureter
CPT/HCPCS: 74177; 82565; Q9967

== ENCOUNTER 2023-09-04 07:34 | Outpatient (CLI) | payer MEDICARE ==
[2023-09-04] MEDS ORDERED: Iopamidol 370 76% 100 ML VIAL ONE (12:30)
== END 2023-09-04 07:35 | disposition home or self-care (01) ==
LOC: CT 07:34
PROVIDERS: ATTEND Urology
DX: N18.31 Chronic kidney disease, stage 3a (principal); N28.9 Disorder of kidney and ureter, unspecified; N28.89 Other specified disorders of kidney and ureter; I51.7 Cardiomegaly; Z90.5 Acquired absence of kidney
CPT/HCPCS: 71046; 74178; 82565; Q9967

== ENCOUNTER 2024-03-22 14:21 | Outpatient (CLI) | payer OTHER | END 2024-03-22 14:22 | disposition home or self-care (01) | LOC: BICCT 14:21 | PROVIDERS: ATTEND Urology | DX: C64.1 Malignant neoplasm of right kidney, except renal pelvis (principal); N18.31 Chronic kidney disease, stage 3a; N28.9 Disorder of kidney and ureter, unspecified; Z90.5 Acquired absence of kidney; N28.89 Other specified disorders of kidney and ureter | CPT/HCPCS: 74176 ==

== ENCOUNTER 2024-04-09 08:53 | Outpatient (CLI) | payer OTHER ==
[2024-04-09] MEDS ORDERED: Iopamidol 370 76% 100 ML VIAL ONE (11:25)
== END 2024-04-09 08:54 | disposition home or self-care (01) ==
LOC: CT 08:53
PROVIDERS: ATTEND Urology
DX: C64.1 Malignant neoplasm of right kidney, except renal pelvis (principal); N18.31 Chronic kidney disease, stage 3a; N28.9 Disorder of kidney and ureter, unspecified
CPT/HCPCS: 36415; 74170; 82565